=== PATIENT | female | born 1960 | race African-American/Black ===

== ENCOUNTER 2017-01-18 05:55 | Inpatient (IN) | payer OTHER ==
[~2017-01-18] VITALS: Ht 157.5 cm; Wt 120.2 kg
[2017-01-18 06:10] VITALS: BP 136/83
[2017-01-18] MEDS ORDERED: ISOSORBIDE DINIT5 MG ORAL (06:13)
[2017-01-18] MEDS ORDERED: NORCO 5-325 TA1 EAC1 ORAL (06:13)
[2017-01-18] MEDS ORDERED: CITALOPRAM HBR10 M1 ORAL (06:13)
[2017-01-18] MEDS ORDERED: HYDROCHLOROTHIA25 MG ORAL (06:13)
[2017-01-18] MEDS ORDERED: TRAZODONE HCL50 MG ORAL (06:13)
[2017-01-18] MEDS ORDERED: AMLODIPINE BESY10 MG ORAL (06:13)
[2017-01-18] MEDS ORDERED: METOPROLOL TART25 MG ORAL (06:13)
[2017-01-18] MEDS ORDERED: LISINOPRIL20 MG ORAL (06:13)
[2017-01-18] MEDS ORDERED: Aspirin Baby 81mg ORAL ONE (06:15)
[2017-01-18] MEDS: Nitroglycerin Subl 0.4mg tab SL PRN ×3 (06:19→07:41)
--- NOTE | 2017-01-18 06:22 | Emergency Room Report ---
History of Present Illness General Chief Complaint: Chest Pain Source: Patient Present Illness HPI This is a morbidly obese female with a BMI a 44. She has a history of coronary disease with a stent placed in [facility] in April of this year. She said she is visiting friends in this area for the holiday. She said that she is homeless now. She walked in with chief complaint of chest pain that has been ongoing for 2 days. It radiates to her head and her legs. No nausea no vomiting. Has not taking any of her medication for 2 weeks because she ran out. Supposedly she saw her doctor 2 days ago for chest pain and was told to go to the hospital for admission. She decided not to go until now area. She denies shortness of breath, diaphoresis, exertional pain. Pain has been constant for 2 days. Pain is 8/10. Allergies: Coded Allergies: PENICILLINS (Verified Allergy, Unknown, 01/18/17) Patient History Past Medical History: see triage record, old chart reviewed, HTN, TX Past Surgical History: other Pertinent Family History: none Social History: Denies: smoking - history Last Menstrual Period: n/a Nursing Documentation-H Hx Cardiac Problems: Yes - stent 04/2016 Hx Hypertension: Yes Hx COPD: Yes Review of Systems Eye: Denies: eye pain, blurred vision ENT: Denies: ear pain, nose congestion, throat swelling Respiratory: Denies: cough, shortness of breath Cardiovascular: Reports: chest pain, Denies: palpitations Gastrointestinal: Denies: abdominal pain, diarrhea, nausea, vomiting Musculoskeletal: Denies: back pain, joint pain Skin: Denies: rash Neurological: Denies: headache, numbness Endocrine: Denies: increased thirst, increased urine Hematologic/Lymphatic: Denies: easy bruising All Other Systems: negative except mentioned in HPI Physical Exam Vital Signs Date Time Temp Pulse Resp B/P (MAP) Pulse Ox O2 Delivery O2 Flow Rate FiO2 01/18/17 06:06 97.9 67 17 185/95 100 Room Air vitals with high blood pressure Sp02 EP Interpretation: reviewed, normal General Appearance: well appearing, no apparent distress, alert, obese Head: normocephalic, atraumatic Eyes: bilateral eye PERRL, bilateral eye EOMI ENT: hearing grossly normal, normal pharynx Neck: full range of motion, supple, no meningismus Respiratory: chest non-tender, lungs clear, normal breath sounds Cardiovascular #1: regular rate, rhythm, no murmur Gastrointestinal: normal bowel sounds, non tender, no mass, no organomegaly, no bruit, non-distended Musculoskeletal: back normal, gait/station normal, normal range of motion Psychiatric: mood/affect normal Skin: warm/dry Medical Decision Making Diagnostic Impression: Primary Impression: Chest pain Qualified Codes: R07.9 - Chest pain, unspecified Additional Impressions: Hypertension Qualified Codes: I10 - Essential (primary) hypertension Morbid obesity with BMI of 40.0-44.9, adult ER Course Presents with atypical chest pain. She does have risk factor and high blood pressure, diabetes, smoking, and noncompliance. Initial EKG unremarkable. Labs pending. I will sign this patient out to Dr. Navarro for final disposition. EKG Diagnostic Results Rate: normal Rhythm: NSR ST Segments: no acute changes Rhythm Strip Diag. Results Rhythm Strip Time: 06:22 EP Interpretation: yes Rate: 67 Rhythm: NSR, no PVC's Last Vital Signs Date Time Temp Pulse Resp B/P (MAP) Pulse Ox O2 Delivery O2 Flow Rate FiO2 01/18/17 06:06 97.9 67 17 185/95 100 Room Air Status: improved LUIS GONZALEZ M.D. Jan 18, 2017 06:22
[2017-01-18 06:50] LABS: ANION GAP 5 mmol/L (5-15); CARBON DIOXIDE 30 MMOL/L (21-32); CHLORIDE 106 MMOL/L (98-107); CREATININE 1.1 MG/DL (0.55-1.30); GLOMERULAR FILTRATION RATE > 60 mL/min (>60); SODIUM 141 MMOL/L (136-145)
[2017-01-18 07:04] LABS: ALANINE AMINOTRANSFERASE 21 U/L (12-78); ALBUMIN/GLOBULIN RATIO 0.9 (1.0-2.7); ASPARTATE AMINO TRANSFERASE 15 U/L (15-37); CKMB 2.2 NG/ML (0.0-3.6); TOTAL PROTEIN 7.3 G/DL (6.4-8.2)
[2017-01-18 07:07] LABS: EOSINOPHILS % (AUTO) 2.7 % (0.0-3.0); LYMPHOCYTES % (AUTO) 29.2 % (20.0-45.0); MEAN CORPUSCULAR HEMOGLOBIN 30.7 PG (27.0-31.0); MEAN CORPUSCULAR HGB CONC 33.9 G/DL (32.0-36.0); MEAN CORPUSCULAR VOLUME 91 FL (80-99); MEAN PLATELET VOLUME 8.4 FL (6.5-10.1); NEUTROPHILS % (AUTO) 60.2 % (45.0-75.0); PLATELET COUNT 191 K/UL (150-450); RED CELL DISTRIBUTION WIDTH 12.6 % (11.6-14.8); WHITE BLOOD COUNT 6.7 K/UL (4.8-10.8)
[2017-01-18 07:30] VITALS: BP 130/84
[2017-01-18 07:59] LABS: APPEARANCE,URINE CLEAR; KETONES,URINE NEGATIVE (NEGATIVE); LEUKOCYTE ESTERASE ,URINE NEGATIVE (NEGATIVE); NITRITE,URINE NEGATIVE (NEGATIVE); PH,URINE 7 (4.5-8.0); PROTEIN,URINE NEGATIVE (NEGATIVE); UROBILINOGEN,URINE NORMAL MG/DL (0.0-1.0)
[2017-01-18] MEDS ORDERED: Albuterol/Ipratropium 3ml neb HHN ONE (08:00)
[2017-01-18 08:13] LABS: RBC,URINE 0-2 /HPF (0 - 2); SQUAMOUS EPITHELIAL CELL,UR FEW /LPF (NONE/OCC); WBC,URINE 0-2 /HPF (0 - 2)
[2017-01-18 08:14] LABS: BACTERIA,URINE FEW /HPF
--- NOTE | 2017-01-18 09:25 | Diagnostic Imaging Report ---
Clinical history: Midsternal chest pain. Technique: Portable AP chest radiograph was obtained. Comparison: None Findings: Mild focal opacity in the right lower lung may represent atelectasis or pneumonia. There is moderate cardiomegaly with mild interstitial densities. There is no pleural effusion or pneumothorax. The bony thorax is unremarkable. Impression: Moderate cardiomegaly with suspected mild interstitial edema. Consider an echocardiogram, if clinically warranted. Mild focal opacity in the right lower lung, suspicious for mild atelectasis or focal infiltrate. Correlate clinically and consider appropriate followup.
[2017-01-18] MEDS ORDERED: Albuterol/Ipratropium 3ml neb HHN PRN (09:30)
[2017-01-18] MEDS ORDERED: Morphine Sulfate 2mg/ml Inj IVP PRN (09:30)
[2017-01-18] MEDS ORDERED: Ketorolac 30mg Inj IV PRN (09:30)
[2017-01-18] MEDS ORDERED: Norco 5mg/325mg tab ORAL PRN (09:30)
[2017-01-18] MEDS ORDERED: Miralax 17gm pkt ORAL PRN (09:30)
[2017-01-18] MEDS ORDERED: Enalaprilat 2.5mg/2ml Inj IV PRN (09:30)
[2017-01-18] MEDS ORDERED: dilTIAZem HCl 25mg/5ml Inj IV PRN (09:30)
[2017-01-18] MEDS ORDERED: Nitroglycerin Subl 0.4mg tab SL PRN (09:30)
[2017-01-18] MEDS ORDERED: Flu Vaccine Quadrivalent 0.5ml IM ONE (14:00)
--- NOTE | 2017-01-18 14:49 | Cardiology Progress Note ---
Subjective Subjective [id number] Objective Last 24 Hour Vital Signs Date Time Temp Pulse Resp B/P (MAP) Pulse Ox O2 Delivery O2 Flow Rate FiO2 01/18/17 10:05 51 16 142/74 99 Room Air 01/18/17 08:51 97.9 01/18/17 08:10 60 16 98 Room Air 01/18/17 08:05 57 14 Room Air 01/18/17 08:05 57 14 98 Room Air 01/18/17 07:41 130/87 01/18/17 07:30 62 22 Room Air 01/18/17 07:30 97.5 62 22 130/84 100 Room Air 01/18/17 07:21 155/72 01/18/17 06:19 185/95 01/18/17 06:10 67 17 Room Air 01/18/17 06:10 97.9 77 17 136/83 100 Room Air 01/18/17 06:06 97.9 67 17 185/95 100 Room Air Laboratory Tests Test 01/18/17 06:25 01/18/17 07:09 01/18/17 14:10 White Blood Count 6.7 K/UL (4.8-10.8) Red Blood Count 4.50 M/UL (4.20-5.40) Hemoglobin 13.8 G/DL (12.0-16.0) Hematocrit 40.7 % (37.0-47.0) Mean Corpuscular Volume 91 FL (80-99) Mean Corpuscular Hemoglobin 30.7 PG (27.0-31.0) Mean Corpuscular Hemoglobin Concent 33.9 G/DL (32.0-36.0) Red Cell Distribution Width 12.6 % (11.6-14.8) Platelet Count 191 K/UL (150-450) Mean Platelet Volume 8.4 FL (6.5-10.1) Neutrophils (%) (Auto) 60.2 % (45.0-75.0) Lymphocytes (%) (Auto) 29.2 % (20.0-45.0) Monocytes (%) (Auto) 7.0 % (1.0-10.0) Eosinophils (%) (Auto) 2.7 % (0.0-3.0) Basophils (%) (Auto) 1.0 % (0.0-2.0) Sodium Level 141 MMOL/L (136-145) Potassium Level 4.0 MMOL/L (3.5-5.1) Chloride Level 106 MMOL/L (98-107) Carbon Dioxide Level 30 MMOL/L (21-32) Anion Gap 5 mmol/L (5-15) Blood Urea Nitrogen 13 mg/dL (7-18) Creatinine 1.1 MG/DL (0.55-1.30) Estimat Glomerular Filtration Rate > 60 mL/min (>60) Glucose Level 106 MG/DL (74-106) Calcium Level 9.0 MG/DL (8.5-10.1) Total Bilirubin 0.4 MG/DL (0.2-1.0) Aspartate Amino Transf (AST/SGOT) 15 U/L (15-37) Alanine Aminotransferase (ALT/SGPT) 21 U/L (12-78) Alkaline Phosphatase 99 U/L (46-116) Total Creatine Kinase 116 U/L (26-308) Creatine Kinase MB 2.2 NG/ML (0.0-3.6) Creatine Kinase MB Relative Index 1.8 Troponin I 0.002 ng/mL (0.000-0.056) Pending Total Protein 7.3 G/DL (6.4-8.2) Albumin 3.5 G/DL (3.4-5.0) Globulin 3.8 g/dL Albumin/Globulin Ratio 0.9 (1.0-2.7) L Urine Color Pale yellow Urine Appearance Clear Urine pH 7 (4.5-8.0) Urine Specific [place] 1.005 (1.005-1.035) Urine Protein Negative (NEGATIVE) Urine Glucose (UA) Negative (NEGATIVE) Urine Ketones Negative (NEGATIVE) Urine Occult Blood 1+ (NEGATIVE) H Urine Nitrite Negative (NEGATIVE) Urine Bilirubin Negative (NEGATIVE) Urine Urobilinogen Normal MG/DL (0.0-1.0) Urine Leukocyte Esterase Negative (NEGATIVE) Urine RBC 0-2 /HPF (0 - 2) Urine WBC 0-2 /HPF (0 - 2) Urine Squamous Epithelial Cells Few /LPF (NONE/OCC) Urine Bacteria Few /HPF (NONE) Urine Opiates Screen Negative (NEGATIVE) Urine Barbiturates Screen Negative (NEGATIVE) Phencyclidine (PCP) Screen Negative (NEGATIVE) Urine Amphetamines Screen Negative (NEGATIVE) Urine Benzodiazepines Screen Negative (NEGATIVE) Urine Cocaine Screen Negative (NEGATIVE) Urine Marijuana (THC) Screen Negative (NEGATIVE) WERO KEVIN Jan 18, 2017 14:49
[2017-01-18 16:00] VITALS: BP 148/75
[2017-01-18 20:00] VITALS: BP 147/77
[2017-01-18] MEDS ORDERED: LORazepam Inj 2mg/ml 1ml IV PRN (20:00)
[2017-01-18] MEDS ORDERED: TraZODone 50mg tab ORAL SCH (21:00)
[2017-01-18] MEDS: Metoprolol 25mg tab ORAL SCH (21:44)
[2017-01-18] MEDS: Heparin 5000 units/ml inj SUBQ SCH (21:44)
--- NOTE | 2017-01-18 23:15 | Consultation ---
DATE OF CONSULTATION: 01/18/2017 CARDIOLOGY CONSULTATION CONSULTING PHYSICIAN: Almita Weiss M.D. IDENTIFICATION DATA: This is a 56-year-old black female. REASON FOR EVALUATION: Chest pain. HISTORY OF PRESENT ILLNESS: Taken from the patient. She reports that she has substernal pressure-like sensation for the last two weeks and before that, it was on and off as well, but for the last couple of weeks, she was getting progressively worse, especially with stress and with walking. I feel when she walks she stops and feels chest pain comes up to 8, and finally, she spoke to her doctor and she told her to come to the emergency department and to be admitted. At present time, she does not have chest pain. Her cardiac history is remarkable for history of myocardial infarction and she had a stent placed at [facility] in May 2015 and she also had a stroke at the same time she said and she was started on medications. ALLERGIES: Penicillin. PAST MEDICAL HISTORY: Significant for hypertension and hyperlipidemia. PAST SURGICAL HISTORY: Hysterectomy for fibroma and umbilical hernia repair. MEDICATIONS: Prior to admission include amlodipine, citalopram, hydrochlorothiazide, hydrocodone, isosorbide, lisinopril, metoprolol, and trazodone. HABITS: She denies drug abuse or alcohol, but she used to smoke. REVIEW OF SYSTEMS: She gained significant amount of weight over the last year and she cannot walk any more. She also has some pain bilateral in her lateral thighs. PHYSICAL EXAMINATION: GENERAL: The patient is comfortable, she is not in acute distress. She is cooperative. VITAL SIGNS: Blood pressure 130/80, heart rate is 60, temperature is 97.5, and oxygen saturation is 99%. HEENT: PERRLA. EOMI. NECK: Neck veins are not distended. She has preserved carotid upstroke bilaterally. LUNGS: Show some crackles at the bases. HEART: Regular. Very distant S1. BREAST: No masses. No thyromegaly. ABDOMEN: Soft. Slightly tender. Distended. Bowel sounds are present. EXTREMITIES: Lower extremities, no edema. She has palpable small lumps in the lateral aspects of both hips, slightly tender, felt like cysts. NEUROLOGICAL: She appears to be intact. LABORATORY DATA: Her laboratory data reviewed. Her ECG shows LVH without any acute ST or T changes and she is in sinus rhythm. Her chest x-ray, possible atelectasis. Her laboratories are reviewed and her CBC is unremarkable and her chemistries also unremarkable and troponin was negative. IMPRESSION AND RECOMMENDATION: This patient is, according to her, she had a history of myocardial infarction and coronary stent, so we are going to go ahead and proceed with stress test tomorrow, her second troponin is pending provided it is normal. Stress test is going to be done tomorrow. Her echocardiogram also was noted and I am going to add statin to her medical regimen. Thank you for your consultation. Almita Weiss M.D. DR: TONO JOB#: [id number] CC:
[2017-01-19] VITALS: BP 153/91
[2017-01-19 04:16] VITALS: BP 147/88
[2017-01-19 05:26] LABS: INR 0.9 (0.9-1.1); PROTHROMBIN TIME 9.5 SEC (9.30-11.50)
[2017-01-19 05:33] LABS: EOSINOPHILS % (AUTO) 4.1 % (0.0-3.0); LYMPHOCYTES % (AUTO) 39.5 % (20.0-45.0); MEAN CORPUSCULAR HEMOGLOBIN 30.3 PG (27.0-31.0); MEAN CORPUSCULAR HGB CONC 32.8 G/DL (32.0-36.0); MEAN CORPUSCULAR VOLUME 92 FL (80-99); MEAN PLATELET VOLUME 8.3 FL (6.5-10.1); MONOCYTES % (AUTO) 6.7 % (1.0-10.0); NEUTROPHILS % (AUTO) 48.7 % (45.0-75.0); PLATELET COUNT 185 K/UL (150-450); RED BLOOD COUNT 4.21 M/UL (4.20-5.40); RED CELL DISTRIBUTION WIDTH 12.7 % (11.6-14.8); WHITE BLOOD COUNT 5.5 K/UL (4.8-10.8)
[2017-01-19] MEDS ORDERED: Lexiscan 0.4mg/5ml syringe IV ONE ×2 (06:00→14:00)
[2017-01-19 07:58] LABS: CHOLESTEROL 127 MG/DL (< 200); CHOLESTEROL/HDL RATIO 3.5 (3.3-4.4); CRP QUANT 0.8 mg/dL (0.00-0.90); THYROID STIMULATING HORMONE 1.651 uiU/mL (0.358-3.740)
[2017-01-19 08:11] VITALS: BP 178/93
[2017-01-19] MEDS ORDERED: Citalopram Hydrobromide 10mg Tab ORAL SCH (09:00)
[2017-01-19] MEDS ORDERED: Aspirin Baby 81mg ORAL SCH (09:00)
[2017-01-19] MEDS: Metoprolol 25mg tab ORAL SCH (09:00)
[2017-01-19] MEDS ORDERED: Lisinopril 20mg tab ORAL SCH (09:00)
[2017-01-19] MEDS: Heparin 5000 units/ml inj SUBQ SCH (09:00)
--- NOTE | 2017-01-19 12:31 | Cardiology Report ---
APPROVED REPORT EXAM: Two-dimensional and M-mode echocardiogram with Doppler and color Doppler. INDICATION Left ventricular function M-Mode DIMENSIONS IVSd1.3 (0.7-1.1cm)Left Atrium (MM)3.6 (1.6-4.0cm) LVDd4.3 (3.5-5.6cm)Aortic Root2.2 (2.0-3.7cm) PWd1.7 (0.7-1.1cm)Aortic Cusp Exc.1.9 (1.5-2.0cm) LVDs2.8 (2.5-4.0cm) PWs2.2 cm Technically difficult study due to poor acoustical windows. Normal left ventricular chamber size, systolic function and wall motion. Left ventricular ejection fraction estimated to be 60-65%. Mild left ventricular hypertrophy. No evidence of pericardial or pleural effusion. All other cardiac chamber sizes are within normal limits. Focal aortic valve sclerosis with adequate cusp excursion. Thickened mitral valve leaflets with normal excursion. Mild mitral annulus and aortic root calcification. Pulmonic valve not well visualized. Normal tricuspid valve structure. IVC is normal in size and collapsible with respiration. A color flow and spectral Doppler study was performed and revealed: No aortic regurgitation. No mitral regurgitation. Mitral diastolic velocities suggest reduced left ventricular relaxation c/w diastolic dysfunction grade 1. No tricuspid regurgitation.
[2017-01-19 12:37] VITALS: BP 159/99
--- NOTE | 2017-01-19 13:22 | Pulmonology Progress Note ---
Assessment/Plan Problems: (1) ACS (acute coronary syndrome) (2) Hypertension (3) Morbid obesity with BMI of 40.0-44.9, adult (4) History of [place] (myocardial infarction) (5) Stented coronary artery Assessment/Plan stress test pending dc home is stress test negative. Subjective ROS Limited/Unobtainable: No Constitutional: Reports: no symptoms HEENT: Repors: no symptoms Respiratory: Reports: no symptoms Cardiovascular: Reports: no symptoms Allergies: Coded Allergies: PENICILLINS (Verified Allergy, Unknown, 01/18/17) Objective Last 24 Hour Vital Signs Date Time Temp Pulse Resp B/P (MAP) Pulse Ox O2 Delivery O2 Flow Rate FiO2 01/19/17 12:37 97.2 57 20 159/99 98 Room Air 01/19/17 08:11 97.0 49 20 178/93 98 Nasal Cannula 1.0 01/19/17 04:16 97.0 54 21 147/88 97 Room Air 01/19/17 04:00 56 01/19/17 00:00 97.0 50 23 153/91 100 Room Air 01/19/17 00:00 49 01/18/17 21:44 58 147/77 01/18/17 20:00 55 01/18/17 20:00 97.0 58 21 147/77 98 Room Air 01/18/17 16:00 97.0 57 20 148/75 96 Room Air 01/18/17 16:00 52 General Appearance: WD/WN HEENT: normocephalic, atraumatic Respiratory/Chest: chest wall non-tender, lungs clear Breasts: no masses Cardiovascular: normal rate, no JVD Abdomen: normal bowel sounds, no organomegaly Genitourinary: normal external genitalia Extremities: no clubbing Neurologic/Psychiatric: olive brine tester II-XII grossly normal, no motor/sensory deficits Laboratory Tests 01/18/17 14:10: Troponin I 0.006 01/19/17 04:55: Troponin I 0.003, White Blood Count 5.5, Red Blood Count 4.21, Hemoglobin 12.8, Hematocrit 38.9, Mean Corpuscular Volume 92, Mean Corpuscular Hemoglobin 30.3, Mean Corpuscular Hemoglobin Concent 32.8, Red Cell Distribution Width 12.7, Platelet Count 185, Mean Platelet Volume 8.3, Neutrophils (%) (Auto) 48.7, Lymphocytes (%) (Auto) 39.5, Monocytes (%) (Auto) 6.7, Eosinophils (%) (Auto) 4.1H, Basophils (%) (Auto) 1.0, Prothrombin Time 9.5, Prothromb Time International Ratio 0.9, Activated Partial Thromboplast Time 27, C-Reactive Protein, Quantitative 0.8, Triglycerides Level 144, Cholesterol Level 127, LDL Cholesterol 75, HDL Cholesterol 36L, Cholesterol/HDL Ratio 3.5, Thyroid Stimulating Hormone (TSH) 1.651 Current Medications Medications (Trade) Dose Ordered Sig/Edi Route PRN Reason Start Time Stop Time Status Last Admin Dose Admin Acetaminophen (Tylenol) 650 mg Q4H PRN ORAL FEVER 01/18/17 09:30 02/17/17 09:29 Acetaminophen/ Hydrocodone Bitart ([place] 5/325) 2 tab Q4H PRN ORAL For Pain 01/18/17 09:30 01/25/17 09:29 01/18/17 14:38 Albuterol/ Ipratropium (Albuterol/ Ipratropium) 3 ml EVERY 4 HOURS PRN HHN Shortness of Breath 01/18/17 09:30 01/23/17 09:29 Amlodipine Besylate (Norvasc) 10 mg DAILY ORAL 01/19/17 09:00 02/18/17 08:59 Aspirin (ASA) 162 mg DAILY ORAL 01/19/17 09:00 02/18/17 08:59 Citalopram Hydrobromide (celeXA) 10 mg DAILY ORAL 01/19/17 09:00 02/18/17 08:59 01/19/17 09:26 Diltiazem HCl (Cardizem) 10 mg EVERY HOUR PRN IV heart rate more than 120, 01/18/17 09:30 02/17/17 09:29 Enalaprilat (Vasotec) 2.5 mg EVERY 6 HOURS PRN IV sbp more than 160 01/18/17 09:30 02/17/17 09:29 Heparin Sodium (Porcine) (Heparin 5000 units/ml) 5,000 units EVERY 12 HOURS SUBQ 01/18/17 21:00 02/17/17 20:59 01/18/17 21:44 Ketorolac Tromethamine (Toradol 30mg) 30 mg Q6HR PRN IV moderate pain ( 4-6) 01/18/17 09:30 01/23/17 09:29 Lisinopril (Prinivil) 20 mg DAILY ORAL 01/19/17 09:00 02/18/17 08:59 Metoprolol Tartrate (Lopressor) 25 mg EVERY 12 HOURS ORAL 01/18/17 21:00 02/17/17 20:59 01/18/17 21:44 Morphine Sulfate (Morphine Sulfate) 2 mg EVERY 4 HOURS PRN IVP severe Pain (Pain Scale 7-10) 01/18/17 09:30 01/25/17 09:29 Nitroglycerin (Ntg) 0.4 mg Q5M PRN SL Prn Chest Pain 01/18/17 09:30 02/17/17 09:29 Ondansetron HCl (Zofran) 4 mg Q6H PRN IVP Nausea & Vomiting 01/18/17 09:30 02/17/17 09:29 Polyethylene Glycol (Miralax) 17 gm DAILYPRN PRN ORAL Constipation 01/18/17 09:30 02/17/17 09:29 Pravastatin Sodium (Pravachol) 20 mg BEDTIME ORAL 01/18/17 21:00 02/17/17 20:59 01/18/17 21:45 Regadenoson (Lexiscan) 0.4 mg ONCE ONCE IV 01/19/17 14:00 01/19/17 14:01 Temazepam (Restoril) 15 mg HSPRN PRN ORAL Insomnia 01/18/17 09:30 01/25/17 09:29 Trazodone HCl (Desyrel) 50 mg BEDTIME ORAL 01/18/17 21:00 02/17/17 20:59 01/18/17 21:44 CEE SPRING Jan 19, 2017 13:22
[2017-01-19] MEDS ORDERED: DOBUTamine 250mg/250ml Premix IV ONE ×2 (13:33→13:36)
--- NOTE | 2017-01-19 16:18 | Diagnostic Imaging Report ---
Indication: Chest pain, history of cardiac stent placed in April of 2016 Technique: IV administration 11 mCi 99 technetium Myoview. Resting SPECT images obtained of the heart. No stress testing performed, per patient request Comparison: None Findings: Equivocal small perfusion defect seen in the inferolateral wall near the apex. There is mild left ventricular chamber dilatation. Impression: Equivocal small perfusion defect in the inferolateral wall to the apex. Possibly artifactual, related to attenuation by overlying soft tissue. If real, could represent a small infarct Unable to assess for the presence or absence of ischemia, due to lack of post stress imaging Mild left ventricular dilatation.
--- NOTE | 2017-01-20 11:53 | Discharge Summary ---
Discharge Summary Hospital Course Date of Admission Jan 18, 2017 at 07:45 Date of Discharge Jan 19, 2017 at 15:40 Admitting Diagnosis acute coronary syndrome ANGELA Bennett is a 56 year old female who was admitted on Jan 18, 2017 at 07: 45 for Acute Coronary Syndrome Hospital Course dc summary #[id number] Discharge Medications Continued Medications: Amlodipine Besylate* (Amlodipine Besylate*) 10 Mg Tablet 10 MG ORAL DAILY, TAB Citalopram Hydrobromide* (Citalopram Hbr*) 10 Mg Tablet 10 MG ORAL DAILY, TAB Hydrocodone Bit/Acetaminophen 5-325* ([place] 5-325 Tablet*) 1 Each Tablet 2 TAB ORAL Q4H PRN for For Pain, TAB Lisinopril (Lisinopril*) 20 Mg Tablet 20 MG ORAL DAILY, TAB Metoprolol Tartrate* (Metoprolol Tartrate*) 25 Mg Tablet 25 MG ORAL EVERY 12 HOURS, TAB Trazodone Hcl* (Desyrel*) 50 Mg Tablet 50 MG ORAL BEDTIME, TAB Discharge Condition Upon Discharge: stable Discharge Disposition Patient was discharged to Home (01) Discharge Diagnoses: Discharge Instructions Discharge Instructions Special Instructions I have been assigned to complete a D/C Summary on this account. I was not involved in the patient management Marilu Angulo NP (Vanchtein) Jan 20, 2017 11:53
--- NOTE | 2017-01-20 14:40 | Cardiology Report ---
APPROVED REPORT EKG Measurement Heart [id number] MT [id number] Normal sinus rhythm Moderate voltage criteria for LVH, may be normal variant Borderline ECG
--- NOTE | 2017-01-20 22:00 | Discharge Summary 2 SIG ---
DATE OF ADMISSION: 01/18/2017 DATE OF DISCHARGE: 01/19/2017 REASON FOR ADMISSION: 56-year-old female, morbidly obese with history of coronary artery disease with stent placement at [facility], hypertension and COPD, presented with a chief complaint of the ongoing chest pain for two days, radiating to head and neck. No nausea. No vomiting. She did not take her routine medications for two weeks, since she was run out of them. She had seen the doctor two days ago for chest pain and was told to go to the hospital. She decided not to go initially, but presented two days later to ED. She denied shortness of breath, diaphoresis, palpitation, or exertional pain. Pain described as 8/10, constant for two days. Workup in the emergency room revealed elevated blood pressure -185/95 and pulse oximetry was stable on room air. Troponin negative. The patient was admitted for chest pain, rule out acute coronary syndrome, uncontrolled hypertension, and morbid obesity. HOSPITAL STAY: The patient was admitted. The patient was started on aspirin. Antihypertensive regimen was optimized and titrated to keep blood pressure in control. The patient was started on aspirin due to the stented coronary artery. Statin add ed to existing regimen. Cardiology evaluation was requested. Serial troponin x3 were negative. EKG revealed no acute ischemic changes. The patient was ruled out for acute myocardial infarction. Machine Rebuilder seen and evaluated the patient and due to the history of TX with stented coronary artery, the patient was scheduled for a stress test. Lipid panel was stable. As mentioned above, statin was added to medication regimen. Urinalysis was negative. Echocardiogram revealed preserved ejection fraction of 60% to 65%, mild left ventricular hypertrophy, no evidence of pericardial or pleural effusion, and no wall motion abnormalities. Chest x-ray revealed moderate cardiomegaly, suspected mild interstitial edema. Mild focal opacity in the right lower lung suspicious for mild atelectasis. The patient subsequently undergone stress test as recommended by warehouse inventory clerk. Nuclear stress test revealed equivocal small perfusion defect in the inferolateral wall to the apex, likely related to the history of previously reported TX. Otherwise,negative stress test. Blood pressure was managed with calcium-channel zohra, JERRI inhibitor, and beta-zohra. The patient was stable for discharge. The patient was reminded that if symptoms return, go to the nearest emergency room. Due to the rapid and unexpected improvement in the patient's condition, the patient was discharged in one day. DISCHARGE MEDICATIONS: See medication reconciliation list. DISCHARGE INSTRUCTIONS: The patient was discharged home. DISCHARGE DIAGNOSES: 1. Chest pain, probably atypical. 2. Hypertension. 3. History of myocardial infarction. 4. Stented coronary artery. 5. Morbid obesity. Onelia Palacio M.D. I have been assigned to dictate discharge summary on this account and I was not involved in the patient's management. Marilu Guptaparrish N.PSantiago DR: Elsa JOB#: [id number] CC: NATHANIEL
--- NOTE | 2017-01-21 16:05 | Cardiology Report ---
APPROVED REPORT EKG Measurement Heart [id number] Sinus rhythm with sinus arrhythmia with occasional, and consecutive premature ventricular complexes Minimal voltage criteria for LVH, may be normal variant Abnormal ECG
--- NOTE | 2017-01-26 13:00 | History and Physical ---
History of Present Illness General Date patient seen: Jan 18, 2017 Reason for Hospitalization: Chest Pain Present Illness HPI 56 year old female with morbidly obese with a BMI a 44, coronary disease with a stent. She walked in with chief complaint of chest pain that has been ongoing for 2 days. It radiates to her head and her legs. she has not taking any of her medication for 2 weeks because she ran out. She is admitted to telemetry for further evaluation. Allergies: Coded Allergies: PENICILLINS (Verified Allergy, Unknown, 01/18/17) Medication History Scheduled Amlodipine Besylate* (Amlodipine Besylate*), 10 MG ORAL DAILY, (Reported) Citalopram Hydrobromide* (Citalopram Hbr*), 10 MG ORAL DAILY, (Reported) Hydrochlorothiazide* (Hydrochlorothiazide*), 25 MG ORAL DAILY, (Reported) Lisinopril (Lisinopril*), 20 MG ORAL DAILY, (Reported) Metoprolol Tartrate* (Metoprolol Tartrate*), 25 MG ORAL EVERY 12 HOURS, ( Reported) Trazodone Hcl* (Desyrel*), 50 MG ORAL BEDTIME, (Reported) Scheduled PRN Hydrocodone Bit/Acetaminophen 5-325* (Oto 5-325 Tablet*), 2 TAB ORAL Q4H PRN for For Pain, (Reported) Miscellaneous Medications Isosorbide Dinitrate (Isosorbide Dinitrate*), 5 MG ORAL, (Reported) Patient History Healthcare decision maker Resuscitation status Full Code Advanced Directive on File Past Medical/Surgical History Past Medical/Surgical History: (1) Stented coronary artery (2) History of TN (myocardial infarction) Review of Systems Cardiovascular: Reports: chest pain, palpitations All Other Systems: negative except mentioned in HPI Physical Exam General Appearance: WD/WN Lines, tubes and drains: peripheral Neck: non-tender, normal alignment Respiratory/Chest: chest wall non-tender, lungs clear Breasts: no masses Cardiovascular/Chest: normal rate Abdomen: normal bowel sounds, non tender Genitourinary/Rectal: normal genital exam, normal rectal exam Extremities: normal range of motion, normal inspection Skin Exam: normal pigmentation Height (Feet): 5 Height (Inches): 2.00 Weight (Pounds): 265 Assessment/Plan Problem List: (1) ACS (acute coronary syndrome) ICD Codes: I24.9 - Acute ischemic heart disease, unspecified SNOMED: 847898119 (2) Hypertension ICD Codes: I10 - Essential (primary) hypertension SNOMED: 77005620, 466063687 Qualifiers: Qualified Codes: I10 - Essential (primary) hypertension (3) Morbid obesity with BMI of 40.0-44.9, adult ICD Codes: E66.01 - Morbid (severe) obesity due to excess calories; Z68.41 - Body mass index (BMI) 40.0-44.9, adult SNOMED: 703492786, 373814633 (4) History of TN (myocardial infarction) ICD Codes: I25.2 - Old myocardial infarction SNOMED: 559772626 (5) Stented coronary artery ICD Codes: Z95.5 - Presence of coronary angioplasty implant and graft SNOMED: 11484543, 749682229 Assessment/Plan serial ekg troponin cardio evaluation symptomatic treatment. CEE SPRING Jan 26, 2017 13:00
--- NOTE | 2017-01-27 02:29 | Physician Query ---
PLEASE COMPLETE THE DOCUMENT BEFORE SIGNING Dear Dr. SPRING Date 01/26/17 Respiratory Services Manager/CDS' Name: FELISA RUIZ CCS Exercise your independent professional judgment when responding to query. Questions asked do not imply particular answer is desired or expected. We greatly appreciate your clarification on this issue. Clinical Documentation States: REASON FOR ADMISSION: 56-year-old female, morbidly obese with history of coronary artery disease with stent placement at [facility], hypertension and COPD, presented with a chief complaint of the ongoing chest pain for two days, radiating to head and neck. HOSPITAL STAY: The patient was admitted. The patient was started on aspirin. Antihypertensive regimen was optimized & titrated to keep blood pressure in control. The patient was started on aspirin due to the stented coronary artery. Statin added to existing regimen.Cardiology evaluation was requested. Serial troponin x3 were negative. EKG revealed no acute ischemic changes. The patient was ruled out for acute myocardial infarction. Clinical Findings Show: EKG = NSR Troponin = NEG X3 ECHO = EF = 60- 65% Chest x-ray revealed moderate cardiomegaly, suspected mild interstitial edema. Mild focal opacity in the right lower lung suspicious for mild atelectasis. Nuclear stress test revealed equivocal small perfusion defect in the inferolateral wall to the apex, likely related to the history of previously reported [place]. Otherwise,negative stress test. Please document the suspected etiology of Chest Pain: a.Type: []Cardiac []Non-cardiac []Unspecified b.Etiology - cardiac [] Aortic dissection []Mitral valve prolapsed [] Acute myocardial infarction []Spasm of coronary arteries [] Coronary Artery Disease []Pericarditis c.Etiology - non-cardiac [] Anxiety []Pleurisy [] Cancer []Pneumonia, type [x] Costochondritis []Pneumothorax [x] GERD/Esophagitis []Pulmonary embolism [] Unable to determine []Other: Please also document in your Progress Notes and/or Discharge Summary and indicate if the condition was present on admission. Kimberley MANN
== END 2017-01-19 15:40 | disposition home or self-care (01) | DRG 198 ==
LOC: EMR 06:30 → 2E 07:45 → EDBEDREQ 09:46
DX: I25.10 Atherosclerotic heart disease of native coronary artery without angina pectoris (principal); Z68.41 Body mass index [BMI] 40.0-44.9, adult; I10 Essential (primary) hypertension; R07.89 Other chest pain; I25.2 Old myocardial infarction; E78.5 Hyperlipidemia, unspecified; E66.01 Morbid (severe) obesity due to excess calories; Z59.0 Homelessness; Z88.0 Allergy status to penicillin; Z90.710 Acquired absence of both cervix and uterus; Z95.5 Presence of coronary angioplasty implant and graft; Z23 Encounter for immunization
CPT/HCPCS: 36415; 71010; 78451; 80053; 80061; 80307; 81003; 82550; 82553; 84443; 84484; 85025; 85610; 85730; 86140; 87081; 90630; 93005; 93306; 94640; 94664; 99285; J2785; J7620

== ENCOUNTER 2017-05-29 16:00 | Emergency (ER) | payer OTHER ==
[~2017-05-29] VITALS: Ht 157.5 cm; Wt 111.1 kg
[~2017-05-29 16:00] MED LIST: AMLODIPINE BESY10 MG ORAL; CITALOPRAM HBR10 M1 ORAL; HYDROCHLOROTHIA25 MG ORAL; ISOSORBIDE DINIT5 MG ORAL; LISINOPRIL20 MG ORAL; METOPROLOL TART25 MG ORAL; NORCO 5-325 TA1 EAC1 ORAL; TRAZODONE HCL50 MG ORAL
[2017-05-29] MEDS ORDERED: DiphenhydrAMINE 50mg/ml Inj IVP ONE (16:30)
[2017-05-29] MEDS ORDERED: ASPIR 8181 MG ORAL (16:30)
[2017-05-29] MEDS ORDERED: FLOVENT2 PUFF1 INH (16:30)
[2017-05-29] MEDS ORDERED: OMEPRAZOLE20 M2 ORAL (16:30)
[2017-05-29] MEDS ORDERED: PLAVIX75 MG ORAL (16:30)
[2017-05-29] MEDS ORDERED: Solu-MEDROL 125mg Inj IVP ONE (16:30)
[2017-05-29] MEDS ORDERED: SPIRIVA18 MCG INH (16:30)
[2017-05-29] MEDS ORDERED: EPINEPHrine 1mg/1ml Amp IM ONE (16:30)
[2017-05-29 17:08] LABS: BASOPHILS % (AUTO) 0.9 % (0.0-2.0); EOSINOPHILS % (AUTO) 2.7 % (0.0-3.0); HEMATOCRIT 43.2 % (37.0-47.0); HEMOGLOBIN 14.1 G/DL (12.0-16.0); LYMPHOCYTES % (AUTO) 35.7 % (20.0-45.0); MEAN CORPUSCULAR VOLUME 90 FL (80-99); MONOCYTES % (AUTO) 6.4 % (1.0-10.0); NEUTROPHILS % (AUTO) 54.3 % (45.0-75.0); PLATELET COUNT 191 K/UL (150-450); RED BLOOD COUNT 4.81 M/UL (4.20-5.40); RED CELL DISTRIBUTION WIDTH 12.7 % (11.6-14.8); WHITE BLOOD COUNT 6.2 K/UL (4.8-10.8)
[2017-05-29 17:10] LABS: INR 0.9 (0.9-1.1)
[2017-05-29 17:14] LABS: ANION GAP 8 mmol/L (5-15); BLOOD UREA NITROGEN 12 mg/dL (7-18); CALCIUM 9.2 MG/DL (8.5-10.1); CARBON DIOXIDE 30 MMOL/L (21-32); CHLORIDE 107 MMOL/L (98-107); POTASSIUM 4.1 MMOL/L (3.5-5.1); SODIUM 145 MMOL/L (136-145)
--- NOTE | 2017-05-29 17:19 | Diagnostic Imaging Report ---
Indication: Dyspnea Technique: XRAY Chest 1v Comparison: 01/18/2017 Findings: Heart size and mediastinal contours are stable. There is mild central pulmonary vascular congestion. There is no definite focal airspace consolidation. No large pleural effusion. No pneumothorax. There are degenerative changes of the spine. No acute osseous abnormality. IMPRESSION: Cardiomegaly and mild central pulmonary vascular congestion. No focal consolidation.
[2017-05-29 17:24] LABS: ALANINE AMINOTRANSFERASE 28 U/L (12-78); ALBUMIN 3.7 G/DL (3.4-5.0); ALKALINE PHOSPHATASE 98 U/L (46-116); ASPARTATE AMINO TRANSFERASE 23 U/L (15-37); BILIRUBIN,TOTAL 0.3 MG/DL (0.2-1.0); CREATINE KINASE 131 U/L (26-308)
[2017-05-29 17:25] VITALS: BP 164/99
--- NOTE | 2017-05-29 17:42 | Emergency Room Report ---
History of Present Illness General Chief Complaint: Allergic Reaction Source: Patient, Medical Record Present Illness HPI The patient presents with bilateral eye swelling and some tickling in her throat. This began after she went to [facility] at 2 PM today for a . The patient has never had allergies like this however she does have eczema. Eyes are itching a little. She is unable to open her eyes at this time. The patient is post cardiac stents. She does take medication for this. She's had some minimal chest pain that doesn't feel cardiac. Also she is complaining of some back pain. She is on lisinopril. No abdominal pain, DUNN, problems speaking or swallowing, calf pain, headache. Eczema has been stable. Allergies: Coded Allergies: PENICILLINS (Verified Allergy, Unknown, 01/18/17) Patient History Past Medical History: see triage record Past Surgical History: PTCA Social History: Denies: smoking Social History Narrative at home Reviewed Nursing Documentation: PMH: Agreed; PSxH: Agreed Nursing Documentation-PMH Past Medical History: No History, Except For Hx Cardiac Problems: Yes - stent 04/2016 Hx Hypertension: Yes Hx COPD: Yes Review of Systems All Other Systems: negative except mentioned in HPI Physical Exam Vital Signs Date Time Temp Pulse Resp B/P (MAP) Pulse Ox O2 Delivery O2 Flow Rate FiO2 05/29/17 16:16 98.2 68 18 176/106 98 Room Air 98.2 Sp02 EP Interpretation: reviewed, normal General Appearance: well appearing, no apparent distress, GCS 15 Head: normocephalic Eyes: bilateral eye PERRL, bilateral eye EOMI, bilateral eye other - lid edema bilat, unable to open eyes on own ENT: no angioedema, normal voice, moist mucus membranes Neck: supple, no bony tend Respiratory: lungs clear, normal breath sounds Cardiovascular #1: regular rate, rhythm Cardiovascular #2: 2+ radial (R) Gastrointestinal: normal inspection, normal bowel sounds, non tender, no mass, non-distended, overweight Genitourinary: no CVA tenderness Musculoskeletal: back normal, gait/station normal, normal range of motion Neurologic: alert, oriented x3, grossly normal Psychiatric: mood/affect normal Skin: normal color, other - hyperpigmented hands Medical Decision Making Diagnostic Impression: Primary Impression: Allergic reaction Qualified Codes: T78.40XA - Allergy, unspecified, initial encounter Additional Impressions: JERRI inhibitor-aggravated angioedema Qualified Codes: T78.3XXA - Angioneurotic edema, initial encounter; T46.4X5A - Adverse effect of jovozvrrfzw-ywqmmbyjsz-qbfvgn inhibitors, initial encounter HTN (hypertension) Qualified Codes: I10 - Essential (primary) hypertension ER Course Patient presents with bilateral eye swelling and some throat scatchiness. DDx: allergic reaction, JERRI inhibitor edema, pollen reaction amongst others. Evaluation with EKG, CXR and labs. Treatment with IM epi, solumedrol, pepcid and benadryl. EKG without injury. CXR no infiltrates. Labs unremarkable. UA with squamous cells and some pyuria (looks contaminated). BP high and treated with clonidine. Improved with observation. Most likely JERRI inhibitor reaction. Improved here. Discussed need to stop JERRI inhibitors. Patient stable for outpatient observation and treatment. Laboratory Tests Test 05/29/17 16:45 05/29/17 18:50 White Blood Count 6.2 K/UL (4.8-10.8) Red Blood Count 4.81 M/UL (4.20-5.40) Hemoglobin 14.1 G/DL (12.0-16.0) Hematocrit 43.2 % (37.0-47.0) Mean Corpuscular Volume 90 FL (80-99) Mean Corpuscular Hemoglobin 29.3 PG (27.0-31.0) Mean Corpuscular Hemoglobin Concent 32.6 G/DL (32.0-36.0) Red Cell Distribution Width 12.7 % (11.6-14.8) Platelet Count 191 K/UL (150-450) Mean Platelet Volume 8.7 FL (6.5-10.1) Neutrophils (%) (Auto) 54.3 % (45.0-75.0) Lymphocytes (%) (Auto) 35.7 % (20.0-45.0) Monocytes (%) (Auto) 6.4 % (1.0-10.0) Eosinophils (%) (Auto) 2.7 % (0.0-3.0) Basophils (%) (Auto) 0.9 % (0.0-2.0) Prothrombin Time 9.8 SEC (9.30-11.50) Prothrombin Time INR 0.9 (0.9-1.1) PTT 27 SEC (23-33) Sodium Level 145 MMOL/L (136-145) Potassium Level 4.1 MMOL/L (3.5-5.1) Chloride Level 107 MMOL/L (98-107) Carbon Dioxide Level 30 MMOL/L (21-32) Anion Gap 8 mmol/L (5-15) Blood Urea Nitrogen 12 mg/dL (7-18) Creatinine 1.0 MG/DL (0.55-1.30) Estimate Glomerular Filtration Rate > 60 mL/min (>60) Glucose Level 89 MG/DL (74-106) Calcium Level 9.2 MG/DL (8.5-10.1) Total Bilirubin 0.3 MG/DL (0.2-1.0) Aspartate Amino Transferase (AST) 23 U/L (15-37) Alanine Aminotransferase (ALT) 28 U/L (12-78) Alkaline Phosphatase 98 U/L (46-116) Total Creatine Kinase 131 U/L (26-308) Troponin I 0.002 ng/mL (0.000-0.056) Pro-B-Type Natriuretic Peptide 146 pg/mL (0-125) H Total Protein 7.3 G/DL (6.4-8.2) Albumin 3.7 G/DL (3.4-5.0) Globulin 3.6 g/dL Albumin/Globulin Ratio 1.0 (1.0-2.7) Urine Color Yellow Urine Appearance Slightly cloudy Urine pH 6 (4.5-8.0) Urine Specific [place] 1.015 (1.005-1.035) Urine Protein 1+ (NEGATIVE) H Urine Glucose (UA) Negative (NEGATIVE) Urine Ketones Negative (NEGATIVE) Urine Occult Blood 2+ (NEGATIVE) H Urine Nitrite Negative (NEGATIVE) Urine Bilirubin Negative (NEGATIVE) Urine Urobilinogen Normal MG/DL (0.0-1.0) Urine Leukocyte Esterase 1+ (NEGATIVE) H Urine RBC 2-4 /HPF (0 - 2) H Urine WBC 5-10 /HPF (0 - 2) H Urine Squamous Epithelial Cells Few /LPF (NONE/OCC) Urine Bacteria Moderate /HPF (NONE) H EKG Diagnostic Results Rate: bradycardiac Rhythm: other ST Segments: no acute changes Rhythm Strip Diag. Results EP Interpretation: yes Rhythm: no PVC's, no ectopy, other - geovanna Last Vital Signs Date Time Temp Pulse Resp B/P (MAP) Pulse Ox O2 Delivery O2 Flow Rate FiO2 05/29/17 22:32 98.2 71 18 140/89 97 Room Air 98.2 Status: improved Disposition: HOME, SELF-CARE Condition: Improved Scripts Prednisone* (PREDNISONE*) 20 Mg Tablet 40 MG ORAL DAILY, #10 TAB Prov: Sukhwinder Morales M.D. 05/29/17 Clonidine Hcl* (CATAPRES*) 0.1 Mg Tablet 0.1 MG ORAL Q12HR, #60 TAB 0 Refills Prov: Sukhwinder Morales M.D. 05/29/17 Sukhwinder Morales M.D. May 29, 2017 17:42
[2017-05-29 18:30] VITALS: BP 186/85
[2017-05-29] MEDS ORDERED: cloNIDine 0.2mg Tab ORAL ONE (19:00)
[2017-05-29 19:19] LABS: APPEARANCE,URINE SLIGHTLY CLOUDY; BILIRUBIN, URINE NEGATIVE (NEGATIVE); COLOR,URINE YELLOW; GLUCOSE, URINE (UA) NEGATIVE (NEGATIVE); KETONES,URINE NEGATIVE (NEGATIVE); LEUKOCYTE ESTERASE ,URINE 1+ (NEGATIVE); NITRITE,URINE NEGATIVE (NEGATIVE); PH,URINE 6 (4.5-8.0); PROTEIN,URINE 1+ (NEGATIVE); UROBILINOGEN,URINE NORMAL MG/DL (0.0-1.0)
[2017-05-29] MEDS ORDERED: CATAPRES0.1 MG ORAL (22:25)
[2017-05-29] MEDS ORDERED: PREDNISONE20 MG ORAL (22:25)
[2017-05-29 22:32] VITALS: BP 140/89
--- NOTE | 2017-05-30 18:08 | Cardiology Report ---
APPROVED REPORT EKG Measurement Heart [id number] Sinus bradycardia with sinus arrhythmia Left ventricular hypertrophy with QRS widening Nonspecific T wave abnormality Abnormal ECG
== END 2017-05-29 22:23 | disposition home or self-care (01) ==
LOC: EMR 16:20
DX: T78.3XXA Angioneurotic edema, initial encounter (principal); T50.995A Adverse effect of other drugs, medicaments and biological substances, initial encounter; Y92.9 Unspecified place or not applicable; I10 Essential (primary) hypertension; J44.9 Chronic obstructive pulmonary disease, unspecified
CPT/HCPCS: 36415; 71045; 80053; 81003; 82550; 83880; 84484; 85025; 85610; 85730; 87086; 93005; 96372; 96374; 96375; 99284; J0171; J1200; J2930; S0028

== ENCOUNTER 2017-06-12 13:05 | Emergency (ER) | payer OTHER ==
[~2017-06-12] VITALS: Ht 157.5 cm; Wt 102.1 kg
[~2017-06-12 13:05] MED LIST changes: +ASPIR 8181 MG ORAL; +CATAPRES0.1 MG ORAL; +FLOVENT2 PUFF1 INH; +OMEPRAZOLE20 M2 ORAL; +PLAVIX75 MG ORAL; +PREDNISONE20 MG ORAL; +SPIRIVA18 MCG INH
--- NOTE | 2017-06-12 13:35 | Emergency Room Report ---
History of Present Illness General Chief Complaint: Pain Present Illness HPI 57-year-old female presents to the emergency department and thinning of 10 out of 10 in severity acute onset pain in the right leg. Patient states that pain began in the right lower extremity and radiates up into the hip she has tenderness to the head and low back pain. Denies trauma or fall. reports symptoms to be progressive. Patient has no significant past medical history other than having a stent placed last year. Patient denies diabetes, high blood pressure. Patient is prescribed Plavix and aspirin to be taken daily and she states she's been taking her medications accordingly. And eyes erythema, increased temperature palpation, skin color changes to the affected extremity she does report that she thinks her veins are "popping out "more than normal. Denies shortness of breath or cough. Denies dysuria, frequency, urgency, hematuria, fevers or chills. Denies taking hormones. Denies CP, Palpitations, LOC, AMS, dizziness, Changes in Vision, Sensation, paresthesias, or a sudden severe headache. Allergies: Coded Allergies: PENICILLINS (Verified Allergy, Unknown, 01/18/17) Patient History Past Medical History: see triage record Past Surgical History: none Pertinent Family History: none Now: No Reviewed Nursing Documentation: PMH: Agreed; PSxH: Agreed Nursing Documentation-PMH Hx Cardiac Problems: Yes - stent 04/2016 Hx Hypertension: Yes Hx COPD: Yes Review of Systems All Other Systems: negative except mentioned in HPI Physical Exam Vital Signs Date Time Temp Pulse Resp B/P (MAP) Pulse Ox O2 Delivery O2 Flow Rate FiO2 06/12/17 13:10 98.0 81 24 161/96 98 Room Air 98.1 Sp02 EP Interpretation: reviewed, normal General Appearance: no apparent distress, alert, GCS 15, non-toxic, obese Head: normocephalic, atraumatic ENT: hearing grossly normal, normal voice Neck: full range of motion Respiratory: chest non-tender, lungs clear, normal breath sounds, no respiratory distress, no wheezing, speaking full sentences Cardiovascular #1: regular rate, rhythm, no edema, normal capillary refill Cardiovascular #2: 2+ dorsalis pedis (R), 2+ dorsalis pedis (L) Gastrointestinal: non tender, no guarding Musculoskeletal: back normal, gait/station normal, normal range of motion, tender - right lumbar paraspinal TTP, lumbar lateral back ttp, and right upper gluteus ttp. Pt. also has right calf ttp. distal pulses intact, and equal bilaterally. Neurologic: alert, oriented x3, responsive, motor strength/tone normal, sensory intact, speech normal, grossly normal Psychiatric: judgement/insight normal Skin: normal color, no rash, warm/dry, well hydrated Lymphatic: no adenopathy Medical Decision Making PA Attestation Dr. Price is my supervising Physician whom patient management has been discussed with. Diagnostic Impression: Primary Impression: Low back pain Qualified Codes: M54.41 - Lumbago with sciatica, right side Additional Impression: Leg pain, right ER Course 57-year-old female presents to the emergency department and thinning of 10 out of 10 in severity acute onset pain in the right leg. Patient states that pain began in the right lower extremity and radiates up into the hip she has tenderness to the head and low back pain. Denies trauma or fall. reports symptoms to be progressive. Patient has no significant past medical history other than having a stent placed last year. Patient denies diabetes, high blood pressure. Patient is prescribed Plavix and aspirin to be taken daily and she states she's been taking her medications accordingly. And eyes erythema, increased temperature palpation, skin color changes to the affected extremity she does report that she thinks her veins are "popping out "more than normal. Denies shortness of breath or cough. Denies dysuria, frequency, urgency, hematuria, fevers or chills. Denies taking hormones. Denies CP, Palpitations, LOC, AMS, dizziness, Changes in Vision, Sensation, paresthesias, or a sudden severe headache. Ddx considered but are not limited to Cellulitis, DVT, varicose vein, PAD, Venous insufficiency, sciatica, lumbar DJD, Pyelo, Non-therapeutic coagulation level) Vital signs: are WNL, pt. is afebrile H&PE are most consistent with musculoskeletal TTP/ sciatica, however due to pt. calf tenderness and mention of varicose veins will r/o DVT. I do not suspect urinary etiology just to significant reproduction of pain with palpation in a large area not consistent with pyelo. ORDERS: -CMP, CBC with Diff, PT/PTT: All WNL- Unremarkable - LE duplex U/s to R/O dvt.: NEGATIVE ED INTERVENTIONS: -Percocet PO -Pt. had good response to ED interventions, her pain has significantly improved. -I do not identify an emergent condition at this time. With current presentation , pt. is stable for close outpatient follow up and conservative treatment. D/ w pt. to return promptly to ED with worsening or new symptoms.- Pt. (and or responsible democrat) verbalizes' understanding and agreement with proposed treatment plan.proposed treatment plan. DISCHARGE: At this time pt. is stable for d/c to home. Will provide printed patient care instructions, and any necessary prescriptions. Care plan and follow up instructions have been discussed with the patient prior to discharge. Labs Test 06/12/17 13:44 White Blood Count 5.6 K/UL (4.8-10.8) Red Blood Count 4.76 M/UL (4.20-5.40) Hemoglobin 14.3 G/DL (12.0-16.0) Hematocrit 42.9 % (37.0-47.0) Mean Corpuscular Volume 90 FL (80-99) Mean Corpuscular Hemoglobin 30.1 PG (27.0-31.0) Mean Corpuscular Hemoglobin Concent 33.4 G/DL (32.0-36.0) Red Cell Distribution Width 12.9 % (11.6-14.8) Platelet Count 160 K/UL (150-450) Mean Platelet Volume 8.7 FL (6.5-10.1) Neutrophils (%) (Auto) 58.4 % (45.0-75.0) Lymphocytes (%) (Auto) 29.1 % (20.0-45.0) Monocytes (%) (Auto) 8.2 % (1.0-10.0) Eosinophils (%) (Auto) 3.5 % (0.0-3.0) Basophils (%) (Auto) 0.8 % (0.0-2.0) Prothrombin Time 10.3 SEC (9.30-11.50) Prothromb Time International Ratio 1.0 (0.9-1.1) Activated Partial Thromboplast Time 27 SEC (23-33) Sodium Level 141 MMOL/L (136-145) Potassium Level 3.7 MMOL/L (3.5-5.1) Chloride Level 103 MMOL/L (98-107) Carbon Dioxide Level 29 MMOL/L (21-32) Anion Gap 9 mmol/L (5-15) Blood Urea Nitrogen 13 mg/dL (7-18) Creatinine 1.1 MG/DL (0.55-1.30) Estimat Glomerular Filtration Rate > 60 mL/min (>60) Glucose Level 108 MG/DL (74-106) Calcium Level 9.3 MG/DL (8.5-10.1) Total Bilirubin 0.7 MG/DL (0.2-1.0) Aspartate Amino Transf (AST/SGOT) 18 U/L (15-37) Alanine Aminotransferase (ALT/SGPT) 33 U/L (12-78) Alkaline Phosphatase 100 U/L (46-116) Total Protein 7.2 G/DL (6.4-8.2) Albumin 3.6 G/DL (3.4-5.0) Globulin 3.6 g/dL Albumin/Globulin Ratio 1.0 (1.0-2.7) Last Vital Signs Date Time Temp Pulse Resp B/P (MAP) Pulse Ox O2 Delivery O2 Flow Rate FiO2 06/12/17 13:10 98.0 81 24 161/96 98 Room Air 98.1 Status: improved Disposition: HOME, SELF-CARE Condition: Stable Scripts Acetaminophen* (TYLENOL EXTRA STRENGTH*) 500 Mg Tablet 500 MG ORAL Q6H, #20 TAB 0 Refills Prov: Kat Lozano 06/12/17 Methocarbamol* (ROBAXIN*) 500 Mg Tablet 1000 MG PO TID, #42 TAB 0 Refills Prov: Kat Lozano 06/12/17 Patient Instructions: Back Pain, Adult, [id number] Additional Instructions: Take medications as directed. Follow up with a Primary Care Provider in 3-5 days, even if your symptoms have resolved. --Please review list of primary care clinics, if you do not already have a primary care provider Return sooner to ED if new symptoms occur, or current symptoms become worse. Do not drink alcohol, drive, or operate heavy machinery while taking [ ] as this may cause drowsiness. - Please note that this Emergency Department Report was dictated using RS[employer]machine silver stripper technology software, occasionally this can lead to erroneous entry secondary to interpretation by the dictation equipment. Kat Lozano Jun 12, 2017 13:35
[2017-06-12 13:37] VITALS: BP 154/67
[2017-06-12] MEDS ORDERED: oxyCODONE HCL/Acetaminophen 5/325mg ORAL ONE (13:45)
[2017-06-12 14:15] LABS: BASOPHILS % (AUTO) 0.8 % (0.0-2.0); EOSINOPHILS % (AUTO) 3.5 % (0.0-3.0); HEMATOCRIT 42.9 % (37.0-47.0); HEMOGLOBIN 14.3 G/DL (12.0-16.0); LYMPHOCYTES % (AUTO) 29.1 % (20.0-45.0); MEAN CORPUSCULAR VOLUME 90 FL (80-99); MONOCYTES % (AUTO) 8.2 % (1.0-10.0); NEUTROPHILS % (AUTO) 58.4 % (45.0-75.0); PLATELET COUNT 160 K/UL (150-450); RED BLOOD COUNT 4.76 M/UL (4.20-5.40); RED CELL DISTRIBUTION WIDTH 12.9 % (11.6-14.8); WHITE BLOOD COUNT 5.6 K/UL (4.8-10.8)
[2017-06-12 14:26] LABS: ANION GAP 9 mmol/L (5-15); BLOOD UREA NITROGEN 13 mg/dL (7-18); CALCIUM 9.3 MG/DL (8.5-10.1); CARBON DIOXIDE 29 MMOL/L (21-32); CHLORIDE 103 MMOL/L (98-107); CREATININE 1.1 MG/DL (0.55-1.30); POTASSIUM 3.7 MMOL/L (3.5-5.1); SODIUM 141 MMOL/L (136-145)
[2017-06-12 14:34] LABS: ALANINE AMINOTRANSFERASE 33 U/L (12-78); ALBUMIN 3.6 G/DL (3.4-5.0); ALKALINE PHOSPHATASE 100 U/L (46-116); ASPARTATE AMINO TRANSFERASE 18 U/L (15-37); BILIRUBIN,TOTAL 0.7 MG/DL (0.2-1.0)
[2017-06-12] MEDS ORDERED: TYLENOL EXTRA500 MG ORAL (14:50)
[2017-06-12] MEDS ORDERED: ROBAXIN500 MG PO (14:50)
[2017-06-12 16:14] VITALS: BP 132/73
== END 2017-06-12 16:00 | disposition home or self-care (01) ==
LOC: EMR 15:46
DX: M54.5 Low back pain (principal); M79.661 Pain in right lower leg; I10 Essential (primary) hypertension; Z79.02 Long term (current) use of antithrombotics/antiplatelets; Z79.82 Long term (current) use of aspirin; Z95.5 Presence of coronary angioplasty implant and graft; J44.9 Chronic obstructive pulmonary disease, unspecified; Z88.0 Allergy status to penicillin
CPT/HCPCS: 36415; 80053; 85025; 85610; 85730; 93971; 99284